=== PATIENT | female | born 1980 ===

== ENCOUNTER 2016-09-04 19:24 | Emergency (ER) | payer OTHER ==
[2016-09-04] MEDS ORDERED: SILVER SULFADIAZINE 25 APP/25 GM TUBE TOPICAL ONE (19:52)
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
[2016-09-04] MEDS ORDERED: oxyCODONE/APAP 5/325 MG PREPAC 1 TAB TABLET PO ONE (20:26)
== END 2016-09-04 20:23 | disposition home or self-care (01) ==
LOC: ER 19:24
DX: T23.292A Burn of second degree of multiple sites of left wrist and hand, initial encounter (principal); T31.0 Burns involving less than 10% of body surface; X10.2XXA Contact with fats and cooking oils, initial encounter; Y93.G3 Activity, cooking and baking
CPT/HCPCS: 16020; 99283